=== PATIENT | female | born 1950 | race Caucasian/White ===

== ENCOUNTER 2017-03-29 17:44 | Emergency (ER) | payer MEDICARE, OTHER ==
[~2017-03-29] VITALS: Ht 152.4 cm; Wt 80.0 kg
[~2017-03-29 17:44] MED LIST: LORA-186 PO; SIMV40TA2 PO; SYN75 PO
[2017-03-29 17:46] VITALS: Ht 152.4 cm; Wt 80.0 kg
[2017-03-29] MEDS ORDERED: IBUP-1542 PO (18:12)
[2017-03-29] MEDS ORDERED: HYDR-906 PO (18:12)
--- NOTE | 2017-03-29 18:18 | ERD ---
ER Documentation Chief Complaint Date/Time DATE: 03/29/17 TIME: 18:14 [facility]DEFORMITY HPI 67-year-old female complaining of left wrist pain. Patient states that she slipped at home less than hour ago. She pulled her left arm outstretched behind her when she fell. She felt pain in her wrist immediately. Denies hitting her head in the fall. Denies any other injuries. Patient has history of hypothyroidism and hypercholesteremia, denies other medical history. ROS All systems reviewed and are negative except as per history of present illness. Medications Home Meds Active Scripts Hydrocodone/Acetaminophen (Wetmore 5-325 Tablet) 1 Each Tablet, 1 TAB PO Q6H Y for SEVERE PAIN LEVEL 7-10, #7 TAB Prov:KIMI LINARES. LABOR COMMISSIONER 03/29/17 Ibuprofen* (Motrin*) 600 Mg Tab, 600 MG PO Q6H Y for PAIN AND OR ELEVATED TEMP, #30 TAB Prov:KIMI LINARES. LABOR COMMISSIONER 03/29/17 Reported Medications Simvastatin* (Zocor*) 40 Mg Tablet, 40 MG PO HS, TAB 11/17/14 Levothyroxine Sodium* (Synthroid*) 75 Mcg Tablet, 75 MCG PO DAILY, TAB 11/17/14 Loratadine* (Claritin*) 10 Mg Tablet, 10 MG PO DAILY, TAB 11/17/14 Allergies Allergies: Coded Allergies: No Known Allergy (Unverified , 11/17/14) PMhx/Soc Hx Alcohol Use: No Hx Substance Use: No Hx Tobacco Use: No Physical Exam Vitals Vital Signs Date Time Temp Pulse Resp B/P Pulse Ox O2 Delivery O2 Flow Rate FiO2 03/29/17 19:31 78 17 134/78 100 Room Air 03/29/17 17:46 97.9 84 18 138/84 99 Physical Exam General: Patient is well-developed. Awake, alert, and conversant, in no apparent distress Skin: Warm and dry Head: Normocephalic, atraumatic without palpable deformities Eyes: Pupils equal, round, and reactive to light. Extraocular movements intact. No periorbital ecchymosis or step-off Ears: Canals patent. Tympanic membranes are clear. No moreno sign. No hemotympanum Nose/face: Atraumatic. Facial bones are nontender to palpation and stable with attempts at manipulation Neck: No midline point tenderness, step-off, or deformity to firm palpation of posterior cervical spine. Trachea midline. Carotids equal. No masses. No JVD. Full range of motion of the neck without limitation or pain Chest: No surface trauma. Nontender without crepitus or deformity. No palpable subcutaneous air. Lungs have good tidal volume, lungs clear to auscultate bilaterally Heart: Regular rate and rhythm. No murmur, rub, or gallop Extremities: Prominent deformity noted in the left distal radius and ulna, with point tenderness. Limited range of motion of left wrist pain, normal range of motion the elbow and hands. Good strength in all extremities. Sensation to light touch intact. All peripheral pulses are intact and equal Neuro: Alert and oriented 4, GCS 15, cranial nerves II through XII intact. Motor and sensory exam is nonfocal. Reflexes are symmetric Results 24 hrs Current Medications Medications (Trade) Dose Ordered Sig/Rosalina Route PRN Reason Start Time Stop Time Status Last Admin Dose Admin Acetaminophen/ Hydrocodone Bitart (Wetmore (5/325)) 1 tab ONCE ONCE PO 03/29/17 18:30 03/29/17 18:31 DC 03/29/17 18:30 PROCEDURE: XR Wrist. CLINICAL INDICATION: pain, deformity, sp fall TECHNIQUE: AP, lateral and oblique views of the left wrist were performed. COMPARISON: No prior studies are available for comparison. FINDINGS: There is a comminuted fracture of the distal radius, with intra-articular involvement. There is distraction of articular surface fragments, up to approximately 6 mm. There is apex volar angulation. There is linear lucency projecting over the scaphoid which appears to be related to skin folds. Osseous structures appear otherwise intact and normally aligned. IMPRESSION: 1. Comminuted intra-articular angulated fracture of the distal radius, with distraction of the articular surface fragments. 2. Probable skin fold artifact projecting over the scaphoid. RPTAT: DD .Carlton Logan MD, MD Date Time Electronically viewed and signed by .Carlton Logan MD, on 03/29/2017 19:14 .T/ CC: KIMI LINARES LABOR COMMISSIONER Procedures/MDM Very pleasant 67-year-old female presented ED was left wrist pain after fall on outstretched hand. Patient given Wetmore in the ED for pain. X-ray of the left wrist read by radiologist: 1. Comminuted intra-articular angulated fracture of the distal radius, with distraction of the articular surface fragments. 2. Probable skin fold artifact projecting over the scaphoid. The area of injury was immobilized with a volar splint and sling. Patient was noted to be comfortable and neurovascularly intact both before and after the immobilization. Patient given referral to [facility] orthopedic [facility], advised to follow-up with orthopedist tomorrow. Patient appears well, stable for discharge and outpatient management. Medical decision making shared with patient and family. Education provided to patient and family. Patient and family expressed understanding of the plan. Medications on discharge: Ibuprofen, Wetmore. Follow-up: Primary care provider in 2-3 days or return to ED if worse. Departure Diagnosis: Primary Impression: Fracture of wrist Encounter type: initial encounter Fracture type: closed Laterality: left Qualified Code: S62.102A - Fracture of wrist, left, closed, initial encounter Condition: Stable Patient Instructions: Fracture, Wrist [General] [facility]errals[facility] Usted se rosales hecho un examen mdico de control que le indica que no est en jeremiah condicin que requiera tratamiento urgente en el Departamento de Emergencia. Un estudio ms profundo y el tratamiento de conte condicin pueden esperar sin ningn riesgo hasta que usted sea atendida/o en el consultorio de conte mdico o jeremiah cl elsi. Es responsabilidad suya arreglar jeremiah steve para el seguimiento del genie. MANEJO DE CONDICIONES NO URGENTES EN EL FUTURO 1) Si usted tiene un mdico de atencin primaria: Usted debera llamar a conte mdico de atencin primaria antes de venir al departamento de emergencia. Despus de las horas de consultorio, conte doctor o conte asociado/a est disponible por telfono. El mdico o enfermero de nicci en el servicio telefnico puede asesorarle por june medio para atender el problema, o genie contrario se puede programar jeremiah steve. 2) Si usted no tiene un mdico de atencin primaria: Llame al mdico o clnica de referencia que aparece abajo bryant las horas de consultorio para hacer jeremiah steve para que le vean. CLINICAS: [facility] [phone] [facility] [phone] [facility] [phone] [place] [phone] [place] [address] [phone] [facility] [phone] [address] [facility] Hours: Mon-Fri 9:00 AM - 5:00 PM Additional Instructions: Specialist:Usted tiene jeremiah condicin mdica que requiere que vilma a un especialista dentro de los prximos 1-2 torres.POR FAVOR,CON CONTE SEGUIMIENTO DE PRIMARIA PHSICIAN refferal. SI USTED NO TIENE UN MDICO GENERAL Y / O USTED NO PUEDE PAGAR fiona a un mdico,los siguientes [place] RECURSOS sido suministrado a usted. ES CONTE RESPONSABILIDAD PARA SER VISTOS POR EL ESPECIALISTA: KIMI LINARES NP Mar 29, 2017 18:18
[2017-03-29] MEDS ORDERED: HYDROCODONE/APAP (5/325) TAB PO ONE (18:30)
--- NOTE | 2017-03-29 19:14 | RADRPT ---
PROCEDURE: XR Wrist. CLINICAL INDICATION: pain, deformity, sp fall TECHNIQUE: AP, lateral and oblique views of the left wrist were performed. COMPARISON: No prior studies are available for comparison. FINDINGS: There is a comminuted fracture of the distal radius, with intra-articular involvement. There is dis traction of articular surface fragments, up to approximately 6 mm. There is apex volar angulation. There is linear lucency projecting over the scaphoid which appears to be related to skin folds. Os seous structures appear otherwise intact and normally aligned. IMPRESSION: 1. Comminuted intra-articular angulated fracture of the distal radius, with distraction of the theodora cular surface fragments. 2. Probable skin fold artifact projecting over the scaphoid. RPTAT: DD .Carlton Logan MD, Date Time Electronically viewed and signed by .Carlton Logan MD, on 03/29/2017 19:14 .T/
[2017-03-29 19:31] VITALS: BP 134/78; PULSE 78; RESP 17
== END 2017-03-29 19:26 | disposition home or self-care (01) ==
LOC: FTE 17:44
DX: S52.502A Unspecified fracture of the lower end of left radius, initial encounter for closed fracture (principal); W01.0XXA Fall on same level from slipping, tripping and stumbling without subsequent striking against object, initial encounter; Y92.009 Unspecified place in unspecified non-institutional (private) residence as the place of occurrence of the external cause
CPT/HCPCS: 99283